=== PATIENT | female | born 2000 | race Caucasian/White ===

== ENCOUNTER 2023-08-18 16:55 | Outpatient (CLI) | payer SELFPAY ==
[2023-08-18] VITALS (7 sets, daily range): BP systolic 144–158; BP diastolic 91–99; PULSE 66–107; RESP 16; TEMP 36.3; BMI 44.2
[2023-08-18 18:10] LABS: Hematocrit 34.7 % (37-47); Hemoglobin 11.2 g/dL (12.0-15.0); Mean Corp Hgb Conc 32.3 g/dL (32-36); Mean Corpuscular Hgb 27.7 pg (27.0-32.0); Mean Corpuscular Volume 85.7 fL (81-99); Platelet Count 251 K/mm3 (150-450); RBC Distribution Width CV 13.6 % (11.6-14.6); RBC Distribution Width SD 42.5 fl (35.1-43.9); Red Blood Count 4.05 M/mm3 (4.2-5.4); White Blood Count 12.1 K/mm3 (4.4-11.0)
[2023-08-18 18:27] LABS: AST(SGOT) 13 U/L (15-37); Alanine Aminotransfer ALT/SGPT 10 U/L (13-56); Creatinine, Serum 0.53 mg/dL (0.55-1.02); EST Glomerular Filtration Rate 152 mL/min (>60); Est Glom Filt Rate - Afr Amer 184 mL/min (>60); Estimated Creatinine Clearance 214.97 ml/min; Protein, Urine (Random) 18.6 mg/dL (<11.9); Protein:Creat Ratio 228 mg/g CRE (0-200); Uric Acid 3.6 mg/dL (2.6-6.0)
[2023-08-18] MEDS: Acetaminophen/Butalbital/Caffe 1 Tablet 2 TABLET PO (18:52)
--- NOTE | 2023-08-18 19:45 | OB.TRI.HP_ITS ---
HPI - General HPI Narrative FELICIA MCKEON, is a 23 F at 36.2 weeks gestation who presents to triage with a headache. Patient receives care in [place] with Enoc Sequeira CNM. Patient seen yesterday and started on Procardia 30 mg XL BID. She was diagnosed with gestational hypertension and was told she will deliver at 37 weeks gest ation. Patient was upset with this plan of care and came to [facility] for a second opinion. PFSH PFSH Home Medications nifedipine 30 mg tablet,extended release 30 mg PO BID 08/18/23 [History Last Taken 08/18/23 06:00] vit no.95-ferrous fumarate 28 mg-folic acid 800 mcg tablet () 1 tab PO DAILY 08/18/23 [History Last Taken 08/18/23] Allergy/AdvReac Type Severity Reaction Status Date / Time amoxicillin Allergy Hives Verified 08/18/23 17:24 ROS Eyes Eyes: Denies blurry vision Cardiovascular Cardiovascular: Reports none; Denies chest pain at rest, chest pain with activity or dizziness Respiratory/Chest Respiratory/Chest: Denies cough or dyspnea Gastrointestinal Gastrointestinal: Reports none and other; Denies diarrhea or vomiting Genitourinary Genitourinary: Denies dysuria Musculoskeletal Musculoskeletal: Reports none Integumentary Integumentary: Reports none; Denies rash Neurologic Neurologic: Denies dizziness, headache(s) or other visual disturbances Psychiatric Psychiatric: Reports none Physical Exam Const alert and no apparent distress General Appearance: cooperative Orientation / Consciousness: awake Exam Limitations: no limitations HEENT normocephalic Eyes General Eye: normal appearance of both eyes Neck full ROM Chest inspection of chest normal Resp normal respiratory effort and normal air movement Effort and Inspection: symmetric chest movement Auscultation: clear to auscultation bilaterally Cardio regular rate GI soft to palpation, non-tender and non-distended Inspection: and other Back/Spine normal ROM Extremity full ROM, normal capillary refill and no calf tenderness Skin no rashes or lesions noted Neuro oriented x3 and CN's II-XII intact bilaterally Psych mental status grossly normal NST FHR Rate Baby A Baseline: 120 Variability:: Moderate Accelerations:: None Decelerations:: None NST Reactive:: Yes FHR Category:: Category I Uterine Activity:: None Assessment & Plan (1) Gestational hypertension: (2) Headache: PLAN: Plan PIH labs normal P/C ratio <300 No severe range pressures- highest pressure 156/99 Took Procardia 30 mg PO last at 0600 today- has not taken second dose Fiorecet 2 tabs PO now D/C home with follow up tomorrow with OB/CNM Dr. Montes involved with plan of care
== END 2023-08-18 19:00 | disposition home or self-care (01) ==
LOC: WPOUT 17:01 → WP 17:01
PROVIDERS: PCP Nurse Practitioner Family; Referring Provider Obstetrics & Gynecology; Visit Provider Obstetrics & Gynecology
DX: O13.3 Gestational [pregnancy-induced] hypertension without significant proteinuria, third trimester (principal); O99.891 Other specified diseases and conditions complicating pregnancy; R51.9 Headache, unspecified; Z3A.36 36 weeks gestation of pregnancy
CPT/HCPCS: 36415; 59025; 59050; 82565; 82570; 84156; 84450; 84460; 84550; 85027; 99221; G0378